=== PATIENT | female | born 1975 | race Caucasian/White ===

== ENCOUNTER 2023-11-04 20:27 | Emergency (ER) | payer BC ==
[~2023-11-04] VITALS: Ht 165.1 cm; Wt 69.7 kg
[2023-11-05 00:47] VITALS: BP 151/74; TEMP 97.4; O2SAT 99
[2023-11-05] MEDS: IBUPROFEN 800 MG TAB PO ONE (02:38)
== END 2023-11-05 04:00 | disposition home or self-care (01) ==
LOC: M ED 20:27
DX: S63.296A Dislocation of distal interphalangeal joint of right little finger, initial encounter (principal); Y92.019 Unspecified place in single-family (private) house as the place of occurrence of the external cause; Y93.9 Activity, unspecified; Y99.9 Unspecified external cause status; F17.210 Nicotine dependence, cigarettes, uncomplicated; Z88.0 Allergy status to penicillin; Z88.1 Allergy status to other antibiotic agents; Z88.5 Allergy status to narcotic agent